=== PATIENT | female | born 2000 | race Two or more races ===

== ENCOUNTER 2021-07-01 17:15 | Emergency (ER) | payer MEDICAID ==
[~2021-07-01] VITALS: Ht 170.2 cm; Wt 75.0 kg
[2021-07-01] MEDS ORDERED: FAMOTIDINE 20MG/2ML VIAL IV ONE (17:45)
[2021-07-01] MEDS ORDERED: ONDANSETRON HCL 4MG/2ML INJ IV ONE (17:45)
[2021-07-01] MEDS ORDERED: SODIUM CHLORIDE 0.9% 1,000 ML IV ONE (17:45)
[2021-07-01] MEDS ORDERED: ACETAMINOPHEN 325MG TABLET PO PRN (17:45)
[2021-07-01] MEDS ORDERED: NITR-87 MT (18:12)
[2021-07-01 18:23] LABS: CLARITY URINE CLEAR (CLEAR); COLOR URINE YELLOW (YELLOW); HEMATOCRIT. 37.9 % (36.0-48.0); HEMOGLOBIN. 12.7 g/dL (12.0-16.0); KETONES URINE 3+ (NEGATIVE); LEUKOCYTE ESTERASE URINE NEGATIVE (NEGATIVE); MEAN CORPUSCULAR HEMOGLOBIN 27.2 pg (28.0-32.0); MEAN CORPUSCULAR VOLUME 81.2 fL (81.0-99.0); MEAN PLATELET VOLUME 9.9 fl (7.4-10.4); NITRITE URINE NEGATIVE (NEGATIVE); OCCULT BLOOD URINE 1+ (NEGATIVE); PLATELET 217 x1000/uL (130-400); PROTEIN URINE NEGATIVE (NEGATIVE); RED BLOOD CELL COUNT 4.67 mill/uL (4.2-5.4); RED CELL DISTRIBUTION WIDTH 15.9 % (11.6-14.6); SPECIFIC GRAVITY URINE 1.008 (1.005-1.030); UROBILINOGEN URINE 0.2 E.U./dL (0.2-1.0)
[2021-07-01 18:29] LABS: CHLORIDE 110 mEq/L (98-107)
[2021-07-01 18:46] LABS: PLATELET ESTIMATE NORMAL
[2021-07-01 18:53] LABS: B-HCG QUANTITATIVE 16913 mIU/mL (<3)
[2021-07-01 20:51] VITALS: BP 110/55
== END 2021-07-01 22:30 | disposition home or self-care (01) ==
LOC: ER 17:15
DX: O26.892 Other specified pregnancy related conditions, second trimester (principal); R10.9 Unspecified abdominal pain; O23.42 Unspecified infection of urinary tract in pregnancy, second trimester; N39.0 Urinary tract infection, site not specified; Z3A.15 15 weeks gestation of pregnancy
CPT/HCPCS: 36415; 76700; 76805; 80053; 81003; 83690; 84702; 85025; 93005; 96361; 96374; 96375; 99285; J2405; J3490; J7030; Z7610

== ENCOUNTER 2025-04-06 11:02 | Emergency (ER) | payer MEDICAID ==
[~2025-04-06] VITALS: Ht 167.6 cm; Wt 90.0 kg
[~2025-04-06 11:02] MED LIST: NITR-87 MT
[2025-04-06 11:08] VITALS: O2SAT 100
[2025-04-06] MEDS ORDERED: IBUP-2029 MT (12:11)
[2025-04-06] MEDS ORDERED: HYDR-4001 MT (12:11)
[2025-04-06] MEDS ORDERED: SULF1TAB48 MT (12:11)
[2025-04-06] MEDS ORDERED: CEPH500T MT (12:11)
[2025-04-06] MEDS: IBUPROFEN 600MG TABLET PO ONE (12:19)
[2025-04-06] MEDS: HYDROCODONE/ACETAMINOPHEN 5/325MG TABLET PO ONE (12:20)
[2025-04-06 13:13] VITALS: BP 123/58; PULSE 70; RESP 16; TEMP 36.9; O2SAT 100
== END 2025-04-06 13:41 | disposition home or self-care (01) ==
LOC: ER 11:02
DX: N76.2 Acute vulvitis (principal); Z79.899 Other long term (current) drug therapy
CPT/HCPCS: 81025; 99283; 99285